=== PATIENT | male | born 2000 | race Caucasian/White ===

== ENCOUNTER 2021-08-28 14:07 | Emergency (ER) | payer BC, SELFPAY ==
--- NOTE | ~2021-08-28 | XR_ITS ---
EXAMINATION: XR lumbar spine 2-3V DATE: 08/28/2021 14:39 INDICATION: Lumbosacral pain post fall. TECHNIQUE: Anteroposterior and lateral views of the lumbar spine, and cone-down lateral view of the l umbosacral junction were obtained. COMPARISON: None. FINDINGS: 5 degrees lumbar levocurvature. Sagittal alignment is normal. Vertebral body and disc heights are nor mal. Sacral arches are intact. On the lateral lumbosacral views there is 2-3 mm anterior displacement and mild posterior angulation of a transverse fracture at the S5 segment. No other fractures identif ied.. Bilateral sacroiliac joints are normal. IMPRESSION: 1. 2-3 mm anterior displacement and mild posterior angulation of a transverse fracture at S5. Reviewed, dictated and finalized at location A. [employer] IMPRESSION: 1. 2-3 mm anterior displacement and mild posterior angulation of a transverse f racture at S5.
[2021-08-28 14:16] VITALS: BP 115/89; PULSE 82; RESP 16; TEMP 36.4; O2SAT 99
--- NOTE | 2021-08-28 14:31 | ED.LOWEXIN ---
HPI - Extremity Injury (Lower) General Chief Complaint: Extremity Injury, Lower Stated Complaint: Pelvis pain due to fall Time Seen by Provider: 08/28/21 14:15 Source: patient, family, RN notes reviewed and old records reviewed Mode of arrival: ambulatory Limitations: no limitations History of Present Illness HPI Narrative: 21 year old male accompanied by father presents to express care with complaints of falling down 6 carpeted steps at home today with injury to his lumbar sacral area. Patient denies any pain radiation down his legs or any tingling or numbness to his lower extremities. Father states that son was sitting in recliner after his fall and was holding a bottle of Gatorade and he thinks he may of passed out, was diaphoretic and pale, dropped bottle of Gatorade but states that he doesn't recall hitting his head when he fell. No history of previous syncope, no heart disease, no seizures or any other chronic health problems MD complaint: fall and other (lumbarsacral back ) Onset (ago): minute(s) (45) Place: home Severity: moderate Severity scale (1-10): 6 Related Data Allergies Allergy/AdvReac Type Severity Reaction Status Date / Time No Known Allergies Allergy Verified 08/28/21 14:09 Review of Systems Review of Systems: CONSTITUTIONAL: Denies fever, chills, or sweats. EYES: Denies visual changes, redness, or discharge. ENT: Denies rhinorrhea, congestion, sore throat, or otalgia. CARDIOVASCULAR: Denies chest pain, palpitations, or edema. RESPIRATORY: Denies cough or dyspnea. GASTROINTESTINAL: Denies abdominal pain, nausea, vomiting, or diarrhea. GENITOURINARY: Denies dysuria or hematuria. SKIN: Denies rash or itching. MUSCULOSKELETAL: Positive for sacral back pain,no joint pain, or myalgia. NEUROLOGIC: Denies headache, numbness, or weakness. PSYCHIATRIC: Denies anxiety or depression.possibly passed out after incident but denies hitting head with fall or any previous dizziness. All systems reviewed & are unremarkable except as noted in HPI and below PMFSH Past Medical History Medical History (Updated 08/28/21 @ 15:24 by Kelsey Gifford NP) BMI 38.0-38.9,adult COVID-19 History of Perthes disease right Morbid (severe) obesity due to excess calories Surgical History Surgical History (Updated 08/28/21 @ 14:48 by Kelsey Gifford NP) History of hip surgery tendonotomy of right hip age 4 Family History Family History (Updated 08/28/21 @ 15:13 by Kelsey Gifford NP) Father No problems noted. Mother CPAP (continuous positive airway pressure) dependence COVID-19 Sibling No problems noted. 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 There is no relevant family history pertinent to the presenting complaint Exam Narrative: GENERAL: Well-appearing, well-nourished,obese and in no acute distress. HEAD: Normocephalic, atraumatic. EYES: PERRLA and EOMI. ENT: Nares clear, no rhinorrhea or epistaxis. Mucous membranes moist. NECK: Supple.no lymphadenopathy CHEST: Clear to auscultation. No respiratory distress.SAO2 99% on room air HEART: Regular rate and rhythm. No murmur heard. Normal peripheral pulses. ABDOMEN: Soft, nontender, nondistended, normal active bowel sounds. EXTREMITIES: Normal range of motion. No edema.Pain to lower sacral region of back especially with movement and changing positions.Denies any radiation of pain to his buttock or down his legs with sensation intact to his lower extremities. SKIN: Warm, dry, no rash. NEURO: No focal deficits. Alert and oriented x3,denies any headach
== END 2021-08-28 15:06 | disposition home or self-care (01) ==
PROVIDERS: Emergency Provider Registered Nurse; PCP Family Medicine
DX: S32.131A Minimally displaced Zone III fracture of sacrum, initial encounter for closed fracture (principal); W10.9XXA Fall (on) (from) unspecified stairs and steps, initial encounter; E66.01 Morbid (severe) obesity due to excess calories; Z68.38 Body mass index [BMI] 38.0-38.9, adult; Z86.16 Personal history of COVID-19
CPT/HCPCS: 72100; 99213; G0463